=== PATIENT | female | born 1970 | race Caucasian/White ===

== ENCOUNTER 2021-03-16 16:58 | Emergency (ER) | payer OTHER ==
[~2021-03-16] VITALS: Ht 154.9 cm; Wt 62.0 kg
[2021-03-16 16:58] VITALS: BP 188/97
[~2021-03-16 16:58] MED LIST: IMODIUM OR; METOPROL TAR50 MG PO; NO HOME MEDS; OMEPRAZOLE40 MG PO; PERCOCET1 TA2 OR; PHENERGAN12.5 MG PO; PRENATA5 OR; ZITHROMAX500 M1 OR; ZOFRAN ODT8 MG SL
[2021-03-16] MEDS ORDERED: DOXYCYC MONO100 M2 PO (17:31)
== END 2021-03-16 17:55 | disposition home or self-care (01) | DRG 605 ==
LOC: ED 16:58
PROC: 0HQKXZZ Repair Right Lower Leg Skin, External Approach (ICD-10-PCS; principal; 2021-03-16)
DX: S81.011A Laceration without foreign body, right knee, initial encounter (principal); W27.8XXA Contact with other nonpowered hand tool, initial encounter; Y93.89 Activity, other specified; Y92.009 Unspecified place in unspecified non-institutional (private) residence as the place of occurrence of the external cause